=== PATIENT | female | born 1970 | race Caucasian/White ===

== ENCOUNTER → 2017-01-30 | Outpatient (CLI) | payer MEDICARE, MEDICAID ==
[~2017-01-30] MED LIST: CIPRO 250MG TA250 MG PO; DEPAKOTE 250MG250 MG PO; DEPAKOTE 500MG500 MG PO; DEPAKOTE ER250 MG PO; DEPAKOTE250 MG PO; DICYCLOMINE HCL20 MG PO; DIVALPROEX 250250 MG PO; GABAPENTIN 600600 MG PO; GABAPENTIN400 M1 PO; LOMOTIL 0.025 M1 TAB PO; LOMOTIL 2.5MG.2.5 MG PO; MOBIC7.5 MG PO; NAPROSYN500 M1 PO; OMNICEF 300 MG300 MG PO; RANITIDINE300 MG PO; TRAMADOL 50MG T1 PAK PO; ULTRAM50 MG PO
--- NOTE | 2017-01-30 10:19 | RADIOLOGY REPORT PS360 ---
HIP LT 2-3V W/PELVIS IF PERFOR HISTORY: LOW BACK PAIN, BILAT HIPS PAIN ORDERING PHYSICIAN: Sebastian Larsen MD PATIENT AGE: 46 years COMPARISON: None FINDINGS: No fracture or dislocation is evident. No significant degenerative change. No lytic or blastic change. Unremarkable soft tissues. There is a small bone island in the femoral head IMPRESSION: Negative left hip
--- NOTE | 2017-01-30 10:20 | RADIOLOGY REPORT PS360 ---
EXAM: LUMBAR SPINE 5 VIEWS HISTORY: LOW BACK PAIN, BILAT HIPS PAIN ORDERING PHYSICIAN: Sebastian Larsen MD PATIENT AGE: 46 years COMPARISON: None FINDINGS: Normal alignment. No fracture or dislocation. No lytic or blastic change. There is decrease in the disc spaces from T12 to S1 with anterior osteophytes consistent with lumbar spondylosis with degenerative disc disease. The SI joints have an unremarkable appearance. IMPRESSION: Lumbar spondylosis with degenerative disc disease and osteophytosis
--- NOTE | 2017-01-30 10:23 | RADIOLOGY REPORT PS360 ---
HIP RT 2-3V W/PELVIS IF PERFOR HISTORY: Right hip pain LOW BACK PAIN, BILAT HIPS PAIN ORDERING PHYSICIAN: Sebastian Larsen MD PATIENT AGE: 46 years COMPARISON: 09/27/2013 FINDINGS: There are dysplastic changes of the right femoral head with foreshortening of the femoral neck and flattening of the femoral head along with abnormal appearance of the right acetabulum somewhat shallow with osteophyte formation. Compared to the previous exam there is been further flattening of the right femoral head with some osseous sclerosis and subcortical lucency consistent with avascular necrosis of the femoral head. 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
== END ==
LOC: RAD 09:40
DX: M54.5 Low back pain (principal); M25.552 Pain in left hip; M25.551 Pain in right hip